=== PATIENT | male | born 1980 | race Two or more races ===

== ENCOUNTER 2022-07-07 12:57 | Inpatient (IN) | payer OTHER ==
[~2022-07-07] VITALS: Ht 175.3 cm; Wt 95.7 kg
[2022-07-07] MEDS ORDERED: METOPROLOL TARTRATE INJ 1 MG/ML VIAL IV ONE (14:30)
[2022-07-07] MEDS ORDERED: METOPROLOL SUCCINATE 50 MG TAB XL PO ONE (15:30)
[2022-07-07] MEDS ORDERED: HYDRALAZINE HCL 20 MG/ML VIAL IV ONE (15:30)
[2022-07-07] MEDS ORDERED: METOPROLOL TARTRATE 50 MG TAB ONE (15:36)
[2022-07-07] MEDS ORDERED: HYDRALAZINE HCL 20 MG/ML VIAL ONE (15:36)
[2022-07-07] MEDS ORDERED: METOPROLOL TARTRATE 50 MG TAB PO ONE (15:45)
[2022-07-07] MEDS ORDERED: SODIUM CHLORIDE FLUSH 10 ML SYR INJ PRN (17:00)
[2022-07-07] MEDS ORDERED: ONDANSETRON HCL INJ 2MG/ML 2ML 2 MG/ML VIAL IV PRN (17:00)
[2022-07-07] MEDS ORDERED: HYDRALAZINE HCL 20 MG/ML VIAL IV PRN ×3 (17:00→17:30)
[2022-07-07] MEDS ORDERED: HYDRALAZINE HCL 20 MG/ML VIAL IV STA (17:20)
[2022-07-07 19:11] VITALS: BP 174/102
[2022-07-07 20:00] VITALS: BP 187/109
[2022-07-07] MEDS: CIPROFLOXACIN 500 MG TAB PO SCH (21:29)
[2022-07-07] MEDS: HYDRALAZINE HCL 20 MG/ML VIAL IV PRN (21:29)
[2022-07-08] VITALS (8 sets, daily range): BP systolic 150–179; BP diastolic 90–115
[2022-07-08] MEDS ORDERED: INFLUENZA VIRUS VAC SPLIT INJ 0.5 ML SYR IM SCH (03:15)
[2022-07-08 05:44] LABS: BASOPHILS # (AUTO) 0.1 (0.0-0.1); BASOPHILS % 0.7 % (0.0-1.0); EOSINOPHILS # (AUTO) 0.2 (0.0-0.4); EOSINOPHILS % 1.9 % (0.0-6.0); HEMATOCRIT 48.9 % (38.2-49.6); HEMOGLOBIN 15.6 g/dL (14.0-18.0); LYMPHOCYTES # (AUTO) 3.2 (1.0-3.2); LYMPHOCYTES % 27.4 % (18.0-39.1); MEAN CORPUSCULAR HEMOGLOBIN 28.7 pg (28-32); MEAN CORPUSCULAR HGB CONC 31.9 g/dL (31-35); MEAN CORPUSCULAR VOLUME 90.1 fL (81-99); MONOCYTES # (AUTO) 1.1 (0.2-0.8); MONOCYTES % 9.5 % (4.4-11.3); NEUTROPHILS # (AUTO) 7.1 (2.1-6.9); NEUTROPHILS % 60.2 % (38.7-80.0); PLATELET COUNT 224 x10e3/uL (140-360); RED BLOOD COUNT 5.43 x10e6/uL (4.3-5.7); RED CELL DISTRIBUTION WIDTH 14.8 % (11.7-14.4)
[2022-07-08 06:07] LABS: ALBUMIN 3.5 g/dL (3.5-5.0); ALBUMIN/GLOBULIN RATIO 0.9 (0.8-2.0); ALKALINE PHOSPHATASE 63 IU/L (40-150); ANION GAP 12.5 mmol/L (8-16); BLOOD UREA NITROGEN 15 mg/dL (7-26); BUN/CREATININE RATIO 14 (6-25); CARBON DIOXIDE 23 mmol/L (22-29); CHLORIDE 109 mmol/L (98-107); CREATININE, SERUM 1.06 mg/dL (0.72-1.25); GLUCOSE 107 mg/dL (74-118); POTASSIUM 3.5 mmol/L (3.5-5.1); SODIUM 141 mmol/L (136-145)
[2022-07-08 06:08] LABS: ALANINE AMINOTRANSFERASE < 6 IU/L (0-55)
[2022-07-08] MEDS ORDERED: METOPROLOL TARTRATE 50 MG TAB PO SCH (09:00)
[2022-07-08] MEDS ORDERED: AMLODIPINE BESYLATE 5 MG TAB PO SCH (09:00)
[2022-07-08] MEDS: CIPROFLOXACIN 500 MG TAB PO SCH ×2 (09:07→17:01)
[2022-07-08] MEDS: METOPROLOL TARTRATE 50 MG TAB PO SCH ×2 (09:08→17:01)
[2022-07-08] MEDS: HYDROCHLOROTHIAZIDE 25 MG TAB PO SCH (09:08)
[2022-07-08] MEDS: ASPIRIN 81 MG ENTERIC COATED PO SCH (09:09)
[2022-07-08 09:47] LABS: CHOL/HDL RATIO 6.1 (3.9-4.7)
[2022-07-08] MEDS: NICOTINE 21 MG/EA PATCH TOP SCH (09:54)
[2022-07-08] MEDS ORDERED: ACETAMINOPHEN 325 MG TAB PO PRN (11:30)
[2022-07-08] MEDS: NIFEDIPINE CR 30 MG TAB PO SCH (17:34)
[2022-07-08] MEDS: HYDRALAZINE HCL 20 MG/ML VIAL IV PRN (17:34)
[2022-07-09] VITALS: BP 159/92
[2022-07-09 04:00] VITALS: BP 145/95
[2022-07-09] MEDS: NIFEDIPINE CR 30 MG TAB PO SCH (05:14)
[2022-07-09 08:18] VITALS: BP 146/94
[2022-07-09] MEDS ORDERED: METOPROLOL TART50 MG PO (09:08)
[2022-07-09] MEDS ORDERED: NICODERM CQ1 EAC2 TOP (09:08)
[2022-07-09] MEDS ORDERED: ESIDRIX25 MG PO (09:08)
[2022-07-09] MEDS ORDERED: NIFEDIPINE ER30 M1 PO (09:08)
[2022-07-09] MEDS ORDERED: ASPIRIN EC81 MG PO (09:08)
[2022-07-09] MEDS ORDERED: METFORMIN HCL500 MG PO (09:11)
[2022-07-09 09:20] VITALS: BP 146/94
[2022-07-09] MEDS: CIPROFLOXACIN 500 MG TAB PO SCH (11:11)
[2022-07-09] MEDS: ASPIRIN 81 MG ENTERIC COATED PO SCH (11:11)
[2022-07-09] MEDS: HYDROCHLOROTHIAZIDE 25 MG TAB PO SCH (11:12)
[2022-07-09] MEDS: NICOTINE 21 MG/EA PATCH TOP SCH (11:12)
[2022-07-09] MEDS: METOPROLOL TARTRATE 50 MG TAB PO SCH (11:12)
[2022-07-09 11:39] VITALS: BP 152/92
[2022-07-09] MEDS ORDERED: ONDANSETRON HCL 4 MG ORAL DISINTEGRATING TAB PO PRN (13:45)
== END 2022-07-09 16:04 | disposition home or self-care (01) | DRG 305 ==
LOC: FSED 13:08 → ERHOLD 16:57 → MED/SURG 18:39 → OBSVTOIN 07-08 09:25
PROVIDERS: ADMIT Internal Medicine; ATTEND Internal Medicine
DX: I16.1 Hypertensive emergency (principal); N39.0 Urinary tract infection, site not specified; N41.9 Inflammatory disease of prostate, unspecified; F17.210 Nicotine dependence, cigarettes, uncomplicated; R74.01 Elevation of levels of liver transaminase levels; E66.09 Other obesity due to excess calories; Z68.31 Body mass index [BMI] 31.0-31.9, adult; Z20.822 Contact with and (suspected) exposure to COVID-19; E11.9 Type 2 diabetes mellitus without complications
CPT/HCPCS: 36415; 71046; 80053; 80061; 81003; 82553; 83036; 84484; 85025; 93005; 96374; 96375; 96376; 99284; G0378; J0360